=== PATIENT | female | born 1960 | race American Indian/Alaskan Native ===

== ENCOUNTER 2017-06-25 07:45 | Outpatient (CLI) | payer OTHER | END 2017-06-25 07:46 | disposition home or self-care (01) | LOC: ECHO 07:45 | PROVIDERS: ATTEND Internal Medicine Critical Care Medicine | DX: I07.1 Rheumatic tricuspid insufficiency (principal); I27.20 Pulmonary hypertension, unspecified | CPT/HCPCS: 93306 ==